=== PATIENT | male | born 1960 | race Asian ===

== ENCOUNTER 2016-07-02 19:55 | Emergency (ER) | payer OTHER ==
[~2016-07-02] VITALS: Ht 172.7 cm; Wt 89.0 kg
[~2016-07-02 19:55] MED LIST: PRED20TA PO
[2016-07-02 20:18] VITALS: Ht 172.7 cm; Wt 89.0 kg
[2016-07-02] MEDS ORDERED: ALBUTEROL/IPRATROPIUM (NEB) 3 ML AMP HHN STA (21:50)
[2016-07-02] MEDS ORDERED: predniSONE 20 MG TAB PO ONE (22:00)
--- NOTE | 2016-07-02 23:28 | ERD ---
ER Documentation Chief Complaint Date/Time DATE: 07/02/16 TIME: 23:24 Chief Complaint Asthma and SOB HPI Pleasant 55-year-old male patient comes in to emergency department today with reports of asthma exacerbation, patient reports symptoms started 2 days ago, he has a Ventolin inhaler which normally controls asthma symptoms, reports he has been using it 3 and 4 times a day with no relief of symptoms. Patient reports a tight chest, wheezing, headache, states he is coughing symptoms worse at night , patient reports cough is nonproductive, denies chest pain, dizziness, palpitations. ROS All systems reviewed and are negative except as per history of present illness. Medications Home Meds Active Scripts Prednisone* (Prednisone*) 20 Mg Tab, 60 MG PO DAILY for 15 Days, TAB 60 mg po daily for 4 days, then 40 mg dailt for 4 days. Prov:SANTINO DE LUNA DO 06/05/15 Allergies Allergies: Coded Allergies: aspirin (Verified Allergy, Unknown, 06/05/15) penicillin (Verified Allergy, Unknown, 06/05/15) PMhx/Soc Medical and Surgical Hx: pt denies Surgical Hx History of Surgery: No Anesthesia Reaction: No Hx Neurological Disorder: No Hx Respiratory Disorders: Yes (asthma ) Hx Cardiac Disorders: No Hx Psychiatric Problems: No Hx Miscellaneous Medical Probl: No Hx Alcohol Use: No Hx Substance Use: No Hx Tobacco Use: No Smoking Status: Never smoker Physical Exam Vitals Vital Signs Date Time Temp Pulse Resp B/P Pulse Ox O2 Delivery O2 Flow Rate FiO2 07/02/16 22:26 80 18 97 21 07/02/16 20:18 97.9 102 22 172/102 98 Physical Exam Const: [] Head: Atraumatic Eyes: Normal Conjunctiva ENT: Normal External Ears, Nose and Mouth. Neck: Full range of motion..~ No meningismus. Resp: Clear to auscultation bilaterally Cardio: Regular rate and rhythm, no murmurs Abd: Soft, non tender, non distended. Normal bowel sounds Skin: No petechiae or rashes Back: No midline or flank tenderness Ext: No cyanosis, or edema Neur: Awake and alert Psych: Normal Mood and Affect Results 24 hrs Current Medications Medications (Trade) Dose Ordered Sig/Cintia Route PRN Reason Start Time Stop Time Status Last Admin Dose Admin Albuterol/ Ipratropium (Duoneb) 3 ml ONCE STAT HHN 07/02/16 21:50 07/02/16 21:52 DC 07/02/16 22:24 Prednisone (Prednisone) 60 mg ONCE ONCE PO 07/02/16 22:00 07/02/16 22:01 DC 07/02/16 22:03 Procedures/[facility] Pleasant 55-year-old male patient presents to emergency department for asthma symptoms. Patient is in no acute distress, speaks clearly, no intercostal retractions, posturing, or coughing. Status asthmaticus is not likely. Chest auscultation is diminished with poor air movement, faint wheeze with expiration. No egophony, pneumonia is not suspected. Patient receives albuterol Atrovent hand-held nebulized treatment and 60 mg of prednisone, post examination patient's breath sounds now are audible, faint wheeze remains present, oxygen saturation is 98% on room air. I feel patient will respond to outpatient treatment with 40 mg of prednisone 4 days, and refill albuterol inhaler. Follow-up with primary care physician. I feel the patient is stable for discharge at this time. I have discussed results, examination findings, the treatment plan with the patient and family present prior to discharge. Indications for emergent reevaluation, side effects of medication were also discussed. All questions were answered. Patient verbalizes understanding and agrees with plan of care. Departure Condition: BENJAMIN Gardner Jul 02, 2016 23:28
[2016-07-02] MEDS ORDERED: PRED20TA PO (23:29)
[2016-07-02] MEDS ORDERED: ALBU18HF INHALATION (23:30)
[2016-07-02 23:40] VITALS: BP 156/103; PULSE 88; RESP 16; TEMP 98
== END 2016-07-02 23:49 | disposition home or self-care (01) ==
LOC: FTE 19:55
DX: J45.901 Unspecified asthma with (acute) exacerbation (principal); R06.02 Shortness of breath
CPT/HCPCS: 94664; J7512; Z7502; Z7610

== ENCOUNTER 2017-06-07 21:47 | Emergency (ER) | END 2017-06-08 00:43 | disposition home or self-care (01) ==

== ENCOUNTER 2018-06-22 15:47 | Inpatient (IN) | payer OTHER ==
[~2018-06-22] VITALS: Ht 175.3 cm; Wt 84.4 kg
[~2018-06-22 15:47] MED LIST changes: +ALBU18HF INHALATION; +ALBU8.5H8 INH; +BECL8.7A INH; +CETI10CA PO; +GUAI120S26 PO
--- NOTE | 2018-06-22 16:35 | ERD ---
ER Documentation Chief Complaint Chief Complaint Complains of SOB hx of Asthma HPI 57-year-old male with a history of asthma presented to the ED complaining of shortness of breath. While in the waiting room patient complained of nausea went to the restroom had an episode of nonbloody emesis and subsequent fall with possible syncope in which he had the left side of his head. Now complains of mild, generalized, crampy, non-radiating abdominal pain. Denies shortness of breath currently. No chest pain or palpitations. Also complains of mild, generalized pruritus and rash. No URI symptoms, fevers or chills. ROS All systems reviewed and are negative except as per history of present illness. Medications Home Meds Active Scripts Methylprednisolone* (Medrol* DOSE PACK) 4 Mg/Dose-Pack Tab.ds.pk, 4 MG PO . DIRECTED, #1 PACKET Prov:SHAVON RYAN NP 06/24/18 Metronidazole* (Flagyl*) 500 Mg Tablet, 500 MG PO Q8, #21 TAB Prov:SHAVON RYAN NP 06/24/18 Ciprofloxacin Hcl* (Ciprofloxacin Hcl*) 500 Mg Tablet, 500 MG PO BID for 7 Days, #14 TAB Prov:SHAVON RYAN NP 06/24/18 Beclomethasone Dip* (Qvar 40*) 7.3 Gm Inha, 2 PUFF INH BID, #1 INHALER Prov:ENEIDA MERCADO NP 06/08/17 Albuterol Sulfate* (Proair HFA*) 8.5 Gm Hfa.aer.ad, 2 PUFF INH Q4H PRN for WHEEZING AND SOB, #1 INHALER Prov:ENEIDA MERCADO NP 06/08/17 Discontinued Scripts Aapyxsmfgbw-X-Engunjzcfd Hb* (Guaifenesin* DM Syrup) 120 Ml Syrup, 10 ML PO Q4H PRN for COUGH, #120 ML Prov:ENEIDA MERCADO NP 06/08/17 Cetirizine Hcl* (Zyrtec*) 10 Mg Capsule, 10 MG PO DAILY, #30 TAB.CHEW Prov:ENEIDA MERCADO NP 06/08/17 Prednisone* (Prednisone*) 20 Mg Tab, 60 MG PO DAILY for 5 Days, TAB Prov:ENEIDA MERCADO NP 06/08/17 Albuterol Sulfate* (Ventolin HFA*) 18 Gm Hfa.aer.ad, 2 PUFF INHALATION Q4H, #1 INHALER Prov:KRISTIN,BENJAMIN 07/02/16 Prednisone* (Prednisone*) 20 Mg Tab, 40 MG PO DAILY for 4 Days, TAB Prov:KRISTIN,BENJAMIN 07/02/16 Prednisone* (Prednisone*) 20 Mg Tab, 60 MG PO DAILY for 15 Days, TAB 60 mg po daily for 4 days, then 40 mg dailt for 4 days. Prov:SANTINO DE LUNA DO 06/05/15 Allergies Allergies: Coded Allergies: aspirin (Verified Allergy, Unknown, 06/22/18) penicillin (Verified Allergy, Unknown, 06/22/18) PMhx/Soc Reviewed in chart. As per HPI. History of Surgery: No Anesthesia Reaction: No Hx Neurological Disorder: No Hx Respiratory Disorders: Yes (asthma ) Hx Cardiac Disorders: No Hx Psychiatric Problems: No Hx Miscellaneous Medical Probl: No Hx Alcohol Use: No Hx Substance Use: No Hx Tobacco Use: No FmHx No sudden cardiac or cancer Physical Exam Vitals Vital Signs Date Temp Pulse Resp B/P (MAP) Pulse Ox O2 O2 Flow FiO2 Time Delivery Rate 06/22/18 97.8 109 17 143/83 98 Room Air 20:00 (103) 06/22/18 97.5 101 17 137/70 100 High Flow 8.0 18:11 (92) 06/22/18 120 28 102/68 100 Room Air 17:30 (79) 06/22/18 112 19 96 21 17:24 06/22/18 97.4 100 20 86/50 (62) 99 15:50 Physical Exam Const: Alert, moderate distress. Head: Abrasion left forehead above the eyebrow. Eyes: Pupils equal react to light, extraocular movements are intact. No nystagmus. No periorbital ecchymosis or subconjunctival hemorrhage. No infraorbital step-off. No cheek hyperesthesias or paresthesias. Superficial vertical abrasion lateral to the left eye lateral canthus. ENT: Normal External Ears, Nose and Mouth. Pharynx is clear without erythema or exudate. No lip, tongue or uvular swelling. Negative conley sign. No hemotympanum. Neck: Full range of motion. No lymphadenopathy or masses. No stridor. No meningismus. Resp: Breath sounds are diminished bilaterally with mild expiratory wheezing and prolonged expiratory phase. No rhonchi or rales. Cardio: Regular rate and rhythm, no murmurs Abd: Soft, mild, generalized tenderness but no rebound or guarding. Non distended. No masses or abnormal pulsations. Normal bowel sounds Skin: Urticarial rash on abdomen. Back: No midline or flank tenderness Ext: No cyanosis, or edema Neur: Awake and alert but has no recollection of syncope. Cranial nerves II through XII are grossly intact. Sensory equal bilaterally. Psych: Normal Mood and Affect Result Diagram: 06/24/1871406/24/18714 Results 24 hrs Laboratory Tests Test 06/22/18 16:34 06/22/18 17:00 06/22/18 17:01 06/22/18 17:49 Bedside Glucose 111 mg/dL White Blood Count 18.3 10^3/ul Red Blood Count 5.97 10^6/ul Hemoglobin 17.1 g/dl Hematocrit 50.4 % Mean Corpuscular 84.4 fl Volume Mean Corpuscular 28.6 pg Hemoglobin Mean Corpuscular 33.9 g/dl Hemoglobin Concent Red Cell 12.6 % Distribution Width Platelet Count 322 10^3/UL Mean Platelet 10.1 fl Volume Immature 0.800 % Granulocytes % Neutrophils % 83.6 % Lymphocytes % 9.5 % Monocytes % 5.1 % Eosinophils % 0.6 % Basophils % 0.4 % Nucleated Red Blood 0.0 /100WBC Cells % Immature 0.140 10^3/ul Granulocytes # Neutrophils # 15.3 10^3/ul Lymphocytes # 1.8 10^3/ul Monocytes # 0.9 10^3/ul Eosinophils # 0.1 10^3/ul Basophils # 0.1 10^3/ul Nucleated Red Blood 0.0 10^3/ul Cells # Sodium Level 138 mmol/L Potassium Level 3.6 mmol/L Chloride Level 97 mmol/L Carbon Dioxide 28 mmol/L Level Anion Gap 13 Blood Urea Nitrogen 19 mg/dl Creatinine 1.38 mg/dl Est Glomerular 53 mL/min Filtrat Rate mL/min Glucose Level 133 mg/dl Calcium Level 9.7 mg/dl Total Bilirubin 0.8 mg/dl Direct Bilirubin 0.00 mg/dl Indirect Bilirubin 0.8 mg/dl Aspartate Amino 30 IU/L Transf (AST/SGOT) Alanine 18 IU/L Aminotransferase (A LT/SGPT) Alkaline 96 IU/L Phosphatase Troponin I < 0.012 ng/ml Total Protein 7.4 g/dl Albumin 4.3 g/dl Globulin 3.10 g/dl Albumin/Globulin 1.38 Ratio Ethyl Alcohol Level < 10.0 mg/dl Lipase 107 U/L POC Venous Lactate 5.4 mmol/L Test 06/22/18 18:09 Urine Color ARACELI Urine Clarity CLOUDY Urine pH 5.0 Urine Specific 1.020 Organ Urine Ketones NEGATIVE mg/dL Urine Nitrite NEGATIVE mg/dL Urine Bilirubin NEGATIVE mg/dL Urine Urobilinogen 1+ mg/dL Urine Leukocyte 1+ Jarrell/ul Esterase Urine Microscopic 80 /HPF RBC Urine Microscopic 18 /HPF WBC Urine Bacteria FEW /HPF Urine Hyaline Casts FEW /HPF Urine Mucus MANY /HPF Urine Hemoglobin 2+ mg/dL Urine Glucose NEGATIVE mg/dL Urine Total Protein 2+ mg/dl Urine Opiates Negative Screen Urine Barbiturates Negative Urine Amphetamines POSITIVE Screen Urine Negative Benzodiazepines Screen Urine Cocaine Negative Screen Urine Cannabinoids Negative Current Medications Medications Dose Sig/Cintia Start Time Status Last (Trade) Ordered Route PRN Stop Time Admin Dose Reason Admin Sodium 1,000 ml @ Q1H STAT 06/22/18 DC 06/22/18 Chloride 1,000 mls/hr IV 16:51 06/22/18 17:03 17:50 125 mg ONCE ONCE 06/22/18 DC 06/22/18 Methylprednis IV 17:00 06/22/18 17:04 olone Sodium 17:01 Succinate (Solu-Medrol) 50 mg ONCE ONCE 06/22/18 DC 06/22/18 Diphenhydrami IV 17:00 06/22/18 17:39 ne HCl 17:01 (Benadryl) Ranitidine 52 ml @ ONCE IVPB 06/22/18 DC 06/23/18 HCl 50 104 mls/hr 17:00 06/24/18 16:42 mg/Sodium 15:12 Chloride Albuterol 10 mg ONCE STAT 06/22/18 DC 06/22/18 (Proventil INH 16:57 06/22/18 17:24 0.5% (Neb)) 16:58 Sodium 1,560 ml BOLUS OVER 2 06/22/18 DC 06/22/18 Chloride HOURS STAT 17:33 06/22/18 17:46 (NS) IV* 17:40 100 ml @ ONCE STAT 06/22/18 DC 06/22/18 Metronidazole 100 mls/hr IVPB 17:52 06/22/18 18:07 18:51 150 ml @ ONCE STAT 06/22/18 DC 06/22/18 Levofloxacin/ 100 mls/hr IVPB 17:52 06/22/18 19:09 Dextrose 19:21 Procedures/MDM DOCUMENTS REVIEWED: ED nurse, prior records EKG: Time: 16:57. Sinus rhythm. Ventricular rate 91, normal ND and QRS intervals. No acute ST segment elevation or depression. No axis deviation or ectopy. My Interpretation: Normal EKG IMAGING: PROCEDURE: XR Chest. CLINICAL INDICATION: Syncope/SOB TECHNIQUE: Single view chest x-ray. COMPARISON: CHEST 06/07/2017 FINDINGS: The cardiomediastinal silhouette is normal in size and contour. No focal consolidation or pleural effusion. Subtle left apical somewhat horizontally oriented line, though with suggestion of peripheral lung markings. Mild degenerative changes of the osseous structures appear IMPRESSION: 1. Findings as above, which may reflect a subtle left apical pneumothorax. Recommend repeat chest radiograph obtained in expiration or CT for further evaluation. Findings were discussed with Jaime Saldaña on 06/22/2018 at 5:50 PM. RPTAT: BBDD Physician Berenice Date Time Electronically viewed and signed by Physician Berenice on 06/22/2018 17:50 RP/ PROCEDURE: CT Brain without contrast. CLINICAL INDICATION: Head injury, syncope. TECHNIQUE: A CT of the brain without contrast was performed utilizing axial sections from the skull base through the vertex. One or more the following does reduction techniques were utilized: Automated exposure control, adjustment of the mA/ or kV according to patient's size, or use of iterative reconstruction technique. Total exam CTDIvol is 39.64 MGy and DLP is 634.23 mGy-cm. DICOM images are available. COMPARISON: None available. FINDINGS: The ventricles and sulci are mildly prominent indicative of volume loss. There is no intracranial hemorrhage, mass effect or midline shift. No abnormal intra- axial or extra-axial fluid collections are seen. The treviño/white matter differentiation is preserved. There are mild foci of hypoattenuation in the white matter, which are nonspecific in etiology but likely reflect chronic small vessel ischemic changes. There are mild intracranial vascular calcifications consistent with atherosclerosis. The visualized paranasal sinuses are essentially clear. IMPRESSION: 1. No acute intracranial hemorrhage, transcortical infarction or mass effect. 2. Mild intracranial atherosclerosis and chronic small vessel ischemic changes. 3. Mild generalized cerebral volume loss. RPTAT: HFN .Gama Echeverria MD, MD Date Time Electronically viewed and signed by .Gama Echeverria MD, MD on 06/22/2018 17:19 .N/ PROCEDURE: CT Abdomen and Pelvis without contrast. CLINICAL INDICATION: Abdominal pain, syncope TECHNIQUE: CT scan of the abdomen and pelvis without IV contrast was performed on a multi-detector high-resolution CT scanner. Oral contrast was not administered. Coronal and sagittal reformatted images were obtained from the axial source images. DICOM images are available. CTDI equals 11.76 mGy, and DLP equals 638.17 mGy-cm. One or more of the following dose reduction techniques were used: - Automated exposure control. - Adjustment of the mA and/or kV according to patient size. - Use of iterative reconstruction technique. COMPARISON: None. FINDINGS: In the absence of intravenous contrast, the study constitutes a limited assessment of the solid organs, bowel and vessels. Lower thorax: Normal. Liver: Normal. Bile Ducts: No biliary dilatation. Gallbladder: Mild layering sludge. Pancreas: Mild fatty involution of the pancreas. Spleen: Normal. Adrenal Glands: Normal. Kidneys/Ureters: Normal. Bladder: Diffuse bladder wall thickening is slightly more than expected for its partially collapsed state. Reproductive organs: Mildly enlarged prostate gland. Gastrointestinal Tract: Scattered colonic diverticula with apparent minimal fat stranding about the distal descending colon. No evidence of appendicitis. Peritoneum/Retroperitoneum: No free fluid or free air. Lymph nodes: Normal. Vessels: Scattered atherosclerotic calcifications of the abdominal aorta and iliacs Musculoskeletal: Mild multilevel degenerative changes of the visualized spine. IMPRESSION: 1. Scattered colonic diverticula with apparent minimal fat stranding about the distal descending colon, may reflect early/mild changes of diverticulitis in the appropriate clinical setting. No pericolonic abscess or free air. 2.Diffuse bladder wall thickening, slightly more than expected for its partially collapsed state. Correlate for potential cystitis. 3. Mildly enlarged prostate gland, consider correlation with PSA. 4. Additional findings as above. RPTAT: BBDD Noe Leonard Physician Date Time Electronically viewed and signed by Physician Berenice on 06/22/2018 17:36 RP/ PROCEDURE: XR Chest. CLINICAL INDICATION: Asthma exacerbation TECHNIQUE: Single frontal view of the chest was obtained COMPARISON: None FINDINGS: The heart is normal in size. There is a 1.4 cm pulmonary nodule in the left upper lobe. No focal consolidations, pleural effusions, pneumothorax is seen. Degenerative changes of the spine and shoulder joints are present. IMPRESSION: 1. A 1.4 cm pulmonary nodule in the left upper lobe. A CT of the chest may be obtained for further characterization. RPTAT:AAJJ Physician Isela Date Time Electronically viewed and signed by Physician Isela on 06/07/2017 23:46 QL/ MEDICAL DECISION MAKIN-year-old male with a history of asthma presented to the ED complaining of shortness of breath. CBC to evaluate for leukocytosis and anemia reveals significant leukocytosis but no left shift. Chemistry reveals elevated creatinine with normal BUN but no electrolyte abnormalities or hyperkalemia. LFTs are unremarkable for hyperkalemia or transaminitis. No evidence of pancreatitis his lipase is not elevated. EKG reveals no evidence of ischemia or dysrhythmia. Troponin is negative. Markedly elevated lactate of 5.4 mmol/L consistent with septic shock although may be elevated due to respirat ory insufficiency. Chest x-ray revealed possible small, apical pneumothorax and repeat expiratory x-ray is negative for pneumothorax but does show a small pulmonary nodule. No infiltrate or pneumonia. CT of the abdomen and pelvis significant for diverticulosis and possible diverticulitis but no abdominal aortic aneurysm, bowel obstruction or perforation. CT of the brain is negative for subdural/epidural hematoma, mass or ischemia in this patient who sustained a closed head injury after syncope. Syncopal episode of uncertain etiology but likely vasovagal after vomiting. No focal deficit, signs of CVA or TIA. No cardiac dysrhythmia. Pulmonary embolism is unlikely. Diffuse urticarial rash secondary to allergic reaction of uncertain etiology treated aggressively and resolved with intravenous corticosteroids, IV fluids and H2 blockers. Admit to telemetry for further evaluation and management. Sepsis documentation: Patient's infectious symptoms have not stabilized and the patient is at risk of rapid decompensation. The patient will be admitted for careful hydration, antibiotic therapy, and infectious source control. Severe Sepsis criteria: Infectious source: Intra-abdominal End organ damage indicated by: Lactate > 2.0 mmol/L Hypotension (SBP < 90 or >40 mmHG drop or MAP < 65) Sepsis Management: Time of recognition of severe sepsis: 17:52 Within 1 hours of recognition: Blood cultures x 2 before broad-spectrum antibiotics: Yes 30 ml/kg NS bolus Completed Initial lactate 5.4 Repeat lactate 1.9 Septic Shock Assessment: Any lactic acid > 4.0 yes Persistent hypotension (SBP < 90 or 40 mmHg drop, MAP < 65) despite 30 mL/kg IV fluid bolus: No Persistent Hypotension: No Comfort care No Hypotension caused by: pt. baseline, med-induced, erroneous value, condition o ther than infection No Refusal by patient/decision maker for: blood draw, IVF, Antibiotics, Pressors No Central line not indicated Accepting Care Team Current data and ongoing care discussed. Time: 18:45 PATIENT CARE TRANSITIONED: Time:18:45, Dr. Lucas Trevizo Critical Care Time: 35 minutes Treatments/Evaluations: Close monitoring and treatment of unstable vital signs, cardiorespiratory, and neurologic status, while maintaining tight balance of fluid, respiratory, and cardiac interventions. This includes the administration of emergency fluid management while maintaining close respiratory support as well as the provision of immediate and broad-spectrum antibiotic therapy, while performing a simultaneous assessment for possible sources in order to direct targeted therapy. This time includes discussing the case with the patient and the patient's family. This time also includes the consideration for invasive and chemical support to prevent cardiopulmonary collapse. This time does not include all procedures stated elsewhere in this record. This time also includes reviewing old records, labs and radiological studies. This time includes examining and re-examining the patient. Additionally, this time also includes arranging care with admitting and consulting physicians. Counseled patient regarding diagnosis, diagnostic results and plan for admission. Departure Diagnosis: Primary Impression: Shortness of breath Additional Impressions: Septic shock SIRS (systemic inflammatory response syndrome) Diverticulitis Syncope Syncope type: unspecified Qualified Codes: R55 - Syncope and collapse Asthma exacerbation Asthma severity: moderate Asthma persistence: unspecified Qualified Cod es: J45.901 - Unspecified asthma with (acute) exacerbation Allergic reaction Encounter type: initial encounter Qualified Codes: T78.40XA - Allergy, unspecified, initial encounter Closed head injury Encounter type: initial encounter Qualified Codes: S09.90XA - Unspecified injury of head, initial encounter Facial abrasion Encounter type: initial encounter Qualified Codes: S00.81XA - Abrasion of other part of head, initial encounter Condition: Serious JAIME CAMPBELL MD Jun 22, 2018 16:35
[2018-06-22] MEDS ORDERED: SOD CHLORIDE 0.9% 1,000 ML IV STA (16:51)
[2018-06-22] MEDS ORDERED: ALBUTEROL 0.5% (NEB) 2.5 MG/0.5 ML AMP INH STA (16:57)
[2018-06-22] MEDS ORDERED: METHYLPREDNISOLONE 125 MG INJ IV ONE (17:00)
[2018-06-22] MEDS ORDERED: DIPHENHYDRAMINE 50 MG INJ IV ONE (17:00)
[2018-06-22] MEDS ORDERED: SODIUM CHLORIDE 0.9% 1L BAG IV* STA (17:33)
[2018-06-22] MEDS: RANITIDINE 50 MG in SOD CHLORIDE 0.9% 50 ML IVPB SCH (17:40)
[2018-06-22] MEDS ORDERED: LEVOFLOXACIN 750MG/D5W (PMX) 150 ML IVPB STA (17:52)
[2018-06-22] MEDS ORDERED: metroNIDAZOLE 500 MG/NS (PMX) 100 ML IVPB STA (17:52)
[2018-06-22] MEDS ORDERED: ACETAMINOPHEN 325 MG TAB PO PRN (20:30)
[2018-06-22] MEDS ORDERED: ONDANSETRON 4 MG INJ IV PRN (20:30)
[2018-06-22] MEDS ORDERED: NACL 0.9% 3 ML SYG IV SCH (20:30)
[2018-06-22] MEDS ORDERED: BISACODYL (EC) 5 MG TAB PO PRN (20:30)
[2018-06-22] MEDS ORDERED: LORAZEPAM 2 MG INJ IV PRN (20:30)
[2018-06-22] MEDS ORDERED: IPRATROPIUM (NEB) 0.5 MG/2.5 ML AMP HHN PRN (20:30)
[2018-06-22] MEDS ORDERED: LEVALBUTEROL (NEB) 1.25 MG/0.5 ML AMP HHN PRN (20:30)
[2018-06-22] MEDS ORDERED: DOCUSATE SODIUM 100 MG CAP PO PRN (20:30)
[2018-06-22 22:00] VITALS: PULSE 102
--- NOTE | 2018-06-22 22:09 | HP ---
Date/Time of Note Date/Time of Note DATE: 06/22/18 TIME: 22:08 Assessment/Plan VTE Prophylaxis SCD applied (from Nsg): Yes Pharmacological prophylaxis: NA/contraindicated Pharm contraindication: low risk/ambulating Lines/Catheters IV Catheter Type (from Nrsg): Saline Lock Assessment/Plan Hospital Course This is a 57-year-old male being admitted to the telemetry floor for: #1 septic shock: Secondary possibly to urinary tract infection and/or possible diverticulitis. Patient at the current time does not have any abdominal pain to palpation. Urinalysis is positive for urinary tract infection. Given his CT findings as well as urinalysis will treat right now ciprofloxacin and Flagyl. W ill trend lactate levels. Initial blood pressures were hypotensive however they have improved. Monitor closely for any signs of fever. Cultures pending. #2 syncopal episode: Etiology unknown possibly secondary to septic shock. Monitor blood pressure. Will check echocardiogram and carotid Dopplers. CT scan of the head was negative for any acute on normalities. Will check orthostatics. #3 asthma exacerbation: Etiology possibly due to amphetamine though patient denies its use. Nebulizers every 4 hours scheduled, IV steroids given in the ED, continue with 5-day prednisone burst. No infiltrates or consolidation seen on chest x-ray. #4 questionable diverticulitis: CAT scan shows possible early diverticulitis. At the current time will treat with Cipro and Flagyl. Current time patient is not complaining of any abdominal pain. Monitor. #5 Acute kidney injury: Creatinine 1.38 I do not have a baseline. Likely secondary to hemodynamics, septic shock. IV fluid hydration. Avoid NSAIDs or nephrotoxic agents. Renally dose antibiotics. Recheck renal function in the a.m. #6 urinary tract infection: Await culture results, on Cipro. #7 abnormal urine drug screen: Positive for amphetamines. Patient denies use. #8 rash: Secondary possibly to allergic reaction. Resolved at the current time. Continue to monitor #9 DVT and GI prophylaxis: SCDs, no GI prophylaxis indicated Further treatment strategy will be implemented as per the clinical course Result Diagram: 06/22/18 1700 06/22/18 1700 Results 24hrs Laboratory Tests Test 06/22/18 16:34 06/22/18 17:00 06/22/18 17:01 06/22/18 17:49 Bedside Glucose 111 White Blood Count 18.3 H Red Blood Count 5.97 Hemoglobin 17.1 Hematocrit 50.4 Mean Corpuscular Volume 84.4 Mean Corpuscular 28.6 L Hemoglobin Mean Corpuscular 33.9 Hemoglobin Concent Red Cell Distribution 12.6 Width Platelet Count 322 Mean Platelet Volume 10.1 Immature Granulocytes % 0.800 H Neutrophils % 83.6 H Lymphocytes % 9.5 L Monocytes % 5.1 Eosinophils % 0.6 Basophils % 0.4 Nucleated Red Blood 0.0 Cells % Immature Granulocytes # 0.140 H Neutrophils # 15.3 H Lymphocytes # 1.8 Monocytes # 0.9 Eosinophils # 0.1 Basophils # 0.1 Nucleated Red Blood 0.0 Cells # Sodium Level 138 Potassium Level 3.6 Chloride Level 97 Carbon Dioxide Level 28 Anion Gap 13 Blood Urea Nitrogen 19 Creatinine 1.38 H Est Glomerular Filtrat 53 L Rate mL/min Glucose Level 133 Calcium Level 9.7 Total Bilirubin 0.8 Direct Bilirubin 0.00 Indirect Bilirubin 0.8 Aspartate Amino 30 Transf (AST/SGOT) Alanine 18 Aminotransferase (ALT/SG PT) Alkaline Phosphatase 96 Troponin I < 0.012 Total Protein 7.4 Albumin 4.3 Globulin 3.10 Albumin/Globulin Ratio 1.38 Ethyl Alcohol Level < 10.0 H Lipase 107 POC Venous Lactate 5.4 *H Test 06/22/18 18:09 Urine Color ARACELI Urine Clarity CLOUDY A Urine pH 5.0 Urine Specific [place] 1.020 Urine Ketones NEGATIVE Urine Nitrite NEGATIVE Urine Bilirubin NEGATIVE Urine Urobilinogen 1+ H Urine Leukocyte Esterase 1+ H Urine Microscopic RBC 80 H Urine Microscopic WBC 18 H Urine Bacteria FEW A Urine Hyaline Casts FEW A Urine Mucus MANY A Urine Hemoglobin 2+ H Urine Glucose NEGATIVE Urine Total Protein 2+ H Urine Opiates Screen Negative Urine Barbiturates Negative Urine Amphetamines POSITIVE Screen Urine Benzodiazepines Negative Screen Urine Cocaine Screen Negative Urine Cannabinoids Negative HPI/ROS Admit Date/Time Admit Date/Time Jun 22, 2018 at 20:06 Hx of Present Illness Chief complaint: Shortness of breath This is a 57-year-old male with a history of asthma presented to the ED complaining of shortness of breath. While in the waiting room patient complained of nausea went to the restroom had an episode of nonbloody emesis and subsequent fall with possible syncope in which he had the left side of his head. Now complains of mild, generalized, crampy, not rating abdominal pain. Denies any chest pain or palpitations. Denies shortness of breath currently. No chest pain or palpitations. Patient did also complain of generalized itchiness and he was noted to have rash type lesion on his skin throughout. Patient did receive steroids as well as Benadryl in the emergency department. He did have a CT scan of the head performed which was negative for any acute abnormality. Urine drug screen was positive for amphetamines however when he was questioned about this he states that he does not do any methamphetamines and that he "usually has a positive drug screen for amphetamines from his inhaler". Does report urinary urgency. On x-ray there also was concern for possible pneumothorax however a repeat expiratory phase x-ray was ordered which did not show any pneumothorax. Allergies: Aspirin, penicillin Medications: See JEWEL BARCENAS Const: As per HPI Eyes : No pain discharge or redness or change in visual acuity ENT: No pain, sore throat, congestion, congestion, dysphagia or discharge Respiratory: As per HPI Cardiovascular: No chest pain, palpitation, PND, or edema GI : As per HPI Genitourinary: No dysuria, hematuria, flank pain , discharge or CVA tenderness Musculoskeletal: No joint pain, back pain, neck pain, restricted range of motion in neck or joints Skin: No rash, bruising or hives Neuro: As per HPI Endocrine: No polyuria, polydipsia, temperature intolerance Psych: No hallucination, depression, anxiety or suicidal ideation PMH/Family/Social Past Medical History Asthma Medications Current Medications Ranitidine HCl 50 mg/Sodium Chloride 52 ml @ 104 mls/hr ONCE IVPB Last administered on 06/22/18at 17:40; Admin Dose 104 MLS/HR; Start 06/22/18 at 17:00 IV Flush (NS 3 ml) 3 ml PER PROTOCOL IV ; Start 06/22/18 at 20:30 Lorazepam (Ativan) 1 mg Q6H PRN IV AGITATION/ANXIETY; Start 06/22/18 at 20:30 Ondansetron HCl (Zofran Inj) 4 mg Q6H PRN IV NAUSEA/VOMITING; Start 06/22/18 at 20:30 Acetaminophen (Tylenol Tab) 650 mg Q6H PRN PO .PAIN 1-3 OR TEMP; Start 06/22/18 at 20:30 Docusate Sodium (Colace) 100 mg Q12H PRN PO .CONSTIPATION; Start 06/22/18 at 20:30 Bisacodyl (Dulcolax) 5 mg DAILY PRN PO .CONSTIPATION; Start 06/22/18 at 20:30 Metronidazole 100 ml @ 100 mls/hr Q6 IVPB ; Start 06/23/18 at 00:00 Ciprofloxacin/ Dextrose 100 ml @ 100 mls/hr Q12H IVPB ; Start 06/23/18 at 08:00 Ipratropium [place] (Atrovent 0.02% (Neb)) 0.5 mg Q4H RESP THERAPY HHN ; Start 06/22/18 at 20:30 Levalbuterol (Xopenex Neb) 1.25 mg Q4H RESP THERAPY HHN ; Start 06/22/18 at 20: 30 Coded Allergies: aspirin (Verified Allergy, Unknown, 06/22/18) penicillin (Verified Allergy, Unknown, 06/22/18) Past Surgical History Past Surgical Hx: no surgical history Family History Significant Family History: no pertinent family hx Social History Of note patient was positive for amphetamine on urine drug screen Alcohol Use: none Smoking Status: Former smoker Drug Use: none Exam/Review of Systems Vital Signs Vitals Vital Signs Date Temp Pulse Resp B/P (MAP) Pulse Ox O2 O2 Flow FiO2 Time Delivery Rate 06/22/18 97.8 103 17 135/88 98 Room Air 21:28 (104) 06/22/18 8.0 18:11 06/22/18 21 17:24 Exam Exam General: Patient currently lying in bed in no acute distress HEENT: Atraumatic, normocephalic. The pupils are equal, round and reactive. Extraocular motor are intact Neck: Supple with full range of motion. No rigidity or meningismus Chest: Nontender Lungs: Mild expiratory wheezing, nonlabored breathing Heart: Normal S1-S2, Regular rhythm and rate. No murmur, S3, or S4 Abdomen: Soft , nontender, nondistended , bowel sounds are present. No guarding no rebound tenderness , No masses or organomegaly. No costovertebral temporal angle mass Extremities: Normal to inspection, no edema no cyanosis Neurologic: Normal mental status, speech normal, cranial nerves II through XII are intact, motor and sensory are intact, no focal weakness Skin: No wheals or rashes or urticaria noted Additional Comments PROCEDURE: Portable chest x-ray. CLINICAL INDICATION: 57 years of age, male. Shortness of breath. Concern for pneumothorax. TECHNIQUE: Portable AP view of the chest. COMPARISON: Chest x-ray from earlier the same day FINDINGS: Medical devices: None. Mediastinum: Cardiomediastinal contours are normal. Lungs: Lungs are clear. Pleura: Negative for pleural effusion or pneumothorax. Bones: No acute bony abnormality. Additional comment: None. IMPRESSION: Negative for evidence of an acute chest process. Negative for evidence of a left apical pneumothorax. RPTAT: HCTS Physician Chrissy Date Time Electronically viewed and signed by Gricel Raines Physician on 06/22/2018 18:27 CS/ CC: JAIME CAMPBELL MD [id number] PROCEDURE: CT Abdomen and Pelvis without contrast. CLINICAL INDICATION: Abdominal pain, syncope TECHNIQUE: CT scan of the abdomen and pelvis without IV contrast was performed on a multi-detector high-resolution CT scanner. Oral contrast was not administered. Coronal and sagittal reformatted images were obtained from the axial source images. DICOM images are available. CTDI equals 11.76 mGy, and DLP equals 638.17 mGy-cm. One or more of the following dose reduction techniques were used: - Automated exposure control. - Adjustment of the mA and/or kV according to patient size. - Use of iterative reconstruction technique. COMPARISON: None. FINDINGS: In the absence of intravenous contrast, the study constitutes a limited assessment of the solid organs, bowel and vessels. Lower thorax: Normal. Liver: Normal. Bile Ducts: No biliary dilatation. Gallbladder: Mild layering sludge. Pancreas: Mild fatty involution of the pancreas. Spleen: Normal. Adrenal Glands: Normal. Kidneys/Ureters: Normal. Bladder: Diffuse bladder wall thickening is slightly more than expected for its partially collapsed state. Reproductive organs: Mildly enlarged prostate gland. Gastrointestinal Tract: Scattered colonic diverticula with apparent minimal fat stranding about the distal descending colon. No evidence of appendicitis. Peritoneum/Retroperitoneum: No free fluid or free air. Lymph nodes: Normal. Vessels: Scattered atherosclerotic calcifications of the abdominal aorta and iliacs Musculoskeletal: Mild multilevel degenerative changes of the visualized spine. IMPRESSION: 1. Scattered colonic diverticula with apparent minimal fat stranding about the distal descending colon, may reflect early/mild changes of diverticulitis in the appropriate clinical setting. No pericolonic abscess or free air. 2.Diffuse bladder wall thickening, slightly more than expected for its partially collapsed state. Correlate for potential cystitis. 3. Mildly enlarged prostate gland, consider correlation with PSA. 4. Additional findings as above. RPTAT: BBDD Noe Leonard, Physician Date Time Electronically viewed and signed by Noe Leonard Physician on 06/22/2018 17:36 RP/ CC: JAIME CAMPBELL MD [id number] PROCEDURE: CT Brain without contrast. CLINICAL INDICATION: Head injury, syncope. TECHNIQUE: A CT of the brain without contrast was performed utilizing axial sections from the skull base through the vertex. One or more the following does reduction techniques were utilized: Automated exposure control, adjustment of the mA/ or kV according to patient's size, or use of iterative reconstruction technique. Total exam CTDIvol is 39.64 MGy and DLP is 634.23 mGy-cm. DICOM images are available. COMPARISON: None available. FINDINGS: The ventricles and sulci are mildly prominent indicative of volume loss. There is no intracranial hemorrhage, mass effect or midline shift. No abnormal intra- axial or extra-axial fluid collections are seen. The treviño/white matter differentiation is preserved. There are mild foci of hypoattenuation in the white matter, which are nonspecific in etiology but likely reflect chronic small vessel ischemic changes. There are mild intracranial vascular calcifications consistent with atherosclerosis. The visualized paranasal sinuses are essentially clear. IMPRESSION: 1. No acute intracranial hemorrhage, transcortical infarction or mass effect. 2. Mild intracranial atherosclerosis and chronic small vessel ischemic changes. 3. Mild generalized cerebral volume loss. RPTAT: HFN .Gama Echeverria MD, MD Date Time Electronically viewed and signed by .Gama Echeverria MD, MD on 06/22/2018 17:19 .N/ CC: JAIME CAMPBELL MD [id number]: XR Chest. CLINICAL INDICATION: Syncope/SOB TECHNIQUE: Single view chest x-ray. COMPARISON: DR CHEST 06/07/2017 FINDINGS: The cardiomediastinal silhouette is normal in size and contour. No focal consolidation or pleural effusion. Subtle left apical somewhat horizontally oriented line, though with suggestion of peripheral lung markings. Mild degenerative changes of the osseous structures appear IMPRESSION: 1. Findings as above, which may reflect a subtle left apical pneumothorax. Recommend repeat chest radiograph obtained in expiration or CT for further evaluation. Findings were discussed with Jaime Saldaña on 06/22/2018 at 5:50 PM. RPTAT: BBDD Physician Berenice Date Time Electronically viewed and signed by Physician Berenice on 06/22/2018 17:50 RP/ CC: JAIME CAMPBELL MD [id number] ZAIRA GRAY Jun 22, 2018 22:09
[2018-06-22 22:42] VITALS: Ht 175.3 cm; Wt 84.4 kg
[2018-06-22 22:49] VITALS: BP 110/63; PULSE 99; RESP 18
[2018-06-22 23:06] VITALS: BP 101/56; PULSE 101; RESP 16
[2018-06-22] MEDS: IPRATROPIUM (NEB) 0.5 MG/2.5 ML AMP HHN SCH ×2 (23:35→23:37)
[2018-06-22] MEDS: LEVALBUTEROL (NEB) 1.25 MG/0.5 ML AMP HHN SCH ×2 (23:37→23:38)
[2018-06-23] VITALS (10 sets, daily range): BP systolic 96–107; BP diastolic 54–59; PULSE 91–116; RESP 16–20
[2018-06-23] MEDS: LEVALBUTEROL (NEB) 1.25 MG/0.5 ML AMP HHN SCH ×6 (00:07→20:47)
[2018-06-23] MEDS: IPRATROPIUM (NEB) 0.5 MG/2.5 ML AMP HHN SCH ×6 (00:08→20:47)
[2018-06-23] MEDS: metroNIDAZOLE 500 MG/NS (PMX) 100 ML IVPB SCH ×4 (00:26→17:26)
[2018-06-23] MEDS: predniSONE 20 MG TAB PO SCH (08:26)
[2018-06-23] MEDS: CIPROFLOXACIN 200 MG/D5W IVPB 100 ML IVPB SCH ×2 (10:25→20:17)
--- NOTE | 2018-06-23 13:49 | RADRPT ---
Echocardiogram Report Patient Name: CYNDI HIGGINSPatient ID: [id number] : 1960 (58y )Study Date: 06/23/2018 10:23:44 AM Gender: MAccession #: [id number] Tech: LE Location: Ref.Physician: ZAIRA GRAY Height(Cm): BSA: Weight(Kg): Quality: GoodAccount #: Procedures: Echocardiographic Report: Transthoracic echocardiogram with complete 2D, M-Mode, and doppler examination. Indications: Syncope. Measurements: 2D/M Mode Doppler Measurement Value Normal Range Measurement Value Normal Range LVIDd 2D 5.3 [ 4.2 - 5.8 ] cm BARAK Vmax 2.0 [ 2.0 - 4.0 ] cm2 LVIDs 2D 3.6 [ 2.5 - 4.0 ] cm AV Mean Jesus 1.2 [ 70.0 - 90.0 ] cm/sec LVPWd 2D 1.0 [ 0.6 - 1.0 ] cm AV Mean PG 6.0 [ 2.0 - 4.0 ] mmHg IVSd 2D 1.0 [ 0.6 - 1.0 ] cm AV Peak Jesus 1.5 [ 100.0 - 170.0 ] cm/sec IVS/LVPW 2D 1.0 ratio AV Peak PG 9.0 [ 2.0 - 9.0 ] mmHg LVOT Diam 2.0 [ 2.3 - 2.9 ] cm AV VTI 28.8 cm LVOT Area 3.1 cm2 LVOT Peak Jesus 1.0 [ 70.0 - 110.0 ] cm/sec LVOT Peak PG 4.0 [ 2.0 - 6.0 ] mmHg MV E Peak Jesus 0.8 [ 60.0 - 130.0 ] cm/sec MV A Peak Jesus 1.0 [ 100.0 - 120.0 ] cm/sec MV E/A 0.8 [ 0.8 - 1.5 ] ratio MV Decel Time 165 [ 104 - 258 ] msec Lat E` Jesus 0.1 [ 10.0 - 15.0 ] cm/sec Med E` Jesus 0.1 cm/sec MV E/A 0.8 [ 0.8 - 1.5 ] ratio TR Peak Jesus 2.8 [ 100.0 - 280.0 ] cm/sec TR Peak PG 32.0 mmHg PV Peak Jesus 0.8 [ 40.0 - 80.0 ] cm/sec PV Peak PG 3.0 mmHg RA Pressure 3.0 mmHg Findings: Left Ventricle: Normal left ventricular systolic function. Normal left ventricular cavity size. Normal left ventricular wall thickness. Ejection fraction is visually estimated at 60 %. Tissue Doppler/Mitral Doppler indices are consistent with impaired relaxation (Stage I diastolic dysfunction). Right Ventricle: Normal right ventricular size. Normal right ventricular systolic function. Left Atrium: The left atrium is normal in size. Right Atrium: The right atrium is normal in size. Mitral Valve: Normal appearance of the mitral valve. Trace mitral regurgitation. Aortic Valve: Normal appearance of the aortic valve. No significant aortic stenosis or insufficiency. Tricuspid Valve: Normal appearance and function of the tricuspid valve with trace physiologic regurgitation. Right ventricular systolic pressure is consistent with mild pulmonary hypertension. Estimated peak PA systolic pressure 35 mmHg. Pulmonic Valve: Normal pulmonic valve appearance. Pericardium: Normal pericardium with no significant pericardial effusion. Aorta: Normal aortic root. IVC: Normal size and normal respiratory collapse consistent with normal right atrial pressure. Conclusions: Normal left ventricular systolic function. Normal left ventricular cavity size. Normal left ventricular wall thickness. Ejection fraction is visually estimated at 60 %. Tissue Doppler/Mitral Doppler indices are consistent with impaired relaxation (Stage I diastolic dysfunction). Normal right ventricular size. Normal right ventricular systolic function. The left atrium is normal in size. The right atrium is normal in size. No significant valvular stenosis or regurgitation seen. Normal pericardium with no significant pericardial effusion. Electronically Signed By: Evin Waller 2018-06-23 13:48:47 PST
--- NOTE | 2018-06-23 13:52 | PN ---
Date/Time of Note Date/Time of Note DATE: 06/23/18 TIME: 13:43 Assessment/Plan VTE Prophylaxis Risk score (from Ns)>0 risk: 2 SCD applied (from Ns): Yes Pharmacological prophylaxis: NA/contraindicated Pharm contraindication: low risk/ambulating Lines/Catheters IV Catheter Type (from [facility] Saline Lock Assessment/Plan Assessment/Plan 1. UTI, on cipro, follow up with culture 2. Mild colonic diverticulitis, on cipro and flagyl 3. Sepsis, improving 4. Lactic acidosis, improved 5. syncope, unremarkable carotid US, follow up with echo 6. Acute kidney injury from sepsis, resolved 7. Asthma, stable 8. abnormal urine drug screen: Positive for amphetamines. Patient denies use. 9. DVT prophylaxis: SCDs Result Diagram: 06/23/18 0748 06/23/18 0748 Results 24hrs Laboratory Tests Test 06/22/18 16:34 06/22/18 17:00 06/22/18 17:01 06/22/18 17:49 Bedside Glucose 111 White Blood Count 18.3 H Red Blood Count 5.97 Hemoglobin 17.1 Hematocrit 50.4 Mean Corpuscular Volume 84.4 Mean Corpuscular 28.6 L Hemoglobin Mean Corpuscular 33.9 Hemoglobin Concent Red Cell Distribution 12.6 Width Platelet Count 322 Mean Platelet Volume 10.1 Immature Granulocytes % 0.800 H Neutrophils % 83.6 H Lymphocytes % 9.5 L Monocytes % 5.1 Eosinophils % 0.6 Basophils % 0.4 Nucleated Red Blood 0.0 Cells % Immature Granulocytes # 0.140 H Neutrophils # 15.3 H Lymphocytes # 1.8 Monocytes # 0.9 Eosinophils # 0.1 Basophils # 0.1 Nucleated Red Blood 0.0 Cells # Sodium Level 138 Potassium Level 3.6 Chloride Level 97 Carbon Dioxide Level 28 Anion Gap 13 Blood Urea Nitrogen 19 Creatinine 1.38 H Est Glomerular Filtrat 53 L Rate mL/min Glucose Level 133 Calcium Level 9.7 Total Bilirubin 0.8 Direct Bilirubin 0.00 Indirect Bilirubin 0.8 Aspartate Amino 30 Transf (AST/SGOT) Alanine 18 Aminotransferase (ALT/SG PT) Alkaline Phosphatase 96 Troponin I < 0.012 Total Protein 7.4 Albumin 4.3 Globulin 3.10 Albumin/Globulin Ratio 1.38 Ethyl Alcohol Level < 10.0 H Lipase 107 POC Venous Lactate 5.4 *H Test 06/22/18 18:09 06/22/18 21:56 06/23/18 07:48 Urine Color ARACELI Urine Clarity CLOUDY A Urine pH 5.0 Urine Specific [place] 1.020 Urine Ketones NEGATIVE Urine Nitrite NEGATIVE Urine Bilirubin NEGATIVE Urine Urobilinogen 1+ H Urine Leukocyte Esterase 1+ H Urine Microscopic RBC 80 H Urine Microscopic WBC 18 H Urine Bacteria FEW A Urine Hyaline Casts FEW A Urine Mucus MANY A Urine Hemoglobin 2+ H Urine Glucose NEGATIVE Urine Total Protein 2+ H Urine Opiates Screen Negative Urine Barbiturates Negative Urine Amphetamines POSITIVE Screen Urine Benzodiazepines Negative Screen Urine Cocaine Screen Negative Urine Cannabinoids Negative Lactic Acid Level 1.9 White Blood Count 14.9 H Red Blood Count 4.85 Hemoglobin 13.8 L Hematocrit 40.9 L Mean Corpuscular Volume 84.3 Mean Corpuscular 28.5 L Hemoglobin Mean Corpuscular 33.7 Hemoglobin Concent Red Cell Distribution 13.1 Width Platelet Count 265 Mean Platelet Volume 10.1 Immature Granulocytes % 0.500 H Neutrophils % 90.9 H Lymphocytes % 5.4 L Monocytes % 3.0 Eosinophils % 0.0 Basophils % 0.2 Nucleated Red Blood 0.0 Cells % Immature Granulocytes # 0.080 H Neutrophils # 13.6 H Lymphocytes # 0.8 Monocytes # 0.5 Eosinophils # 0.0 Basophils # 0.0 Nucleated Red Blood 0.0 Cells # Sodium Level 137 Potassium Level 4.1 Chloride Level 105 Carbon Dioxide Level 24 Anion Gap 8 Blood Urea Nitrogen 17 Creatinine 0.89 Est Glomerular Filtrat > 60 Rate mL/min Glucose Level 129 Hemoglobin A1c 6.2 H Calcium Level 8.5 Magnesium Level 2.1 Total Bilirubin 0.4 Direct Bilirubin 0.00 Indirect Bilirubin 0.4 Aspartate Amino 23 Transf (AST/SGOT) Alanine 23 Aminotransferase (ALT/SG PT) Alkaline Phosphatase 77 Total Protein 6.0 #L Albumin 3.3 # Globulin 2.70 Albumin/Globulin Ratio 1.22 Triglycerides Level 43 Cholesterol Level 100 LDL Cholesterol, 51 Calculated HDL Cholesterol 40 Cholesterol/HDL Ratio 2.5 Thyroid Stimulating 0.467 Hormone (TSH) Subjective 24 Hr Interval Summary Free Text/Dictation no abdominal pain no shortness of breath no dysuria Exam/Review of Systems Exam Vitals Vital Signs Date Temp Pulse Resp B/P (MAP) Pulse Ox O2 O2 Flow FiO2 Time Delivery Rate 06/23/18 99 20 97 Nasal 2.0 28 12:48 Cannula 06/23/18 98.2 104/55 11:20 (71) Intake and Output 06/22/18 06/22/18 06/23/18 1414:59 22:59 06:59 IntakeIntake Total 1000 ml 100 ml BalanceBalance 1000 ml 100 ml Constitutional: alert, oriented, well developed Psych: no complaints, nl mood/affect Head: normocephalic, atraumatic Eyes: nl conjunctiva, EOMI, nl lids, PERRL ENMT: nl external ears & nose, nl lips & teeth, nl nasal mucosa & septum Neck: supple, non-tender Respiratory: clear to auscultation, normal air movement; No congested cough, No crackles/rales, No diminished breath sounds, No intercostal retraction, No labored breathing, No respirations, No tactile fremitus, No wheezing, No other Cardiovascular: regular rate and rhythm, nl pulses; No bruits, No diastolic murmur, No edema, No gallop, No irregular rhythm, No jugular venous distention (JVD), No murmurs/extra sounds, No rub, No systolic murmur, No S3, No S4, No other Gastrointestinal: soft, nl liver, spleen, non-tender; No ascites, No bowel sounds, No distended, No firm, No hepatomegaly, No mass, No rebound or guarding, No splenomegaly, No surgical scars, No tender, No other Musculoskeletal: nl extremities to inspection Extremities: normal pulses; No calf tenderness, No cyanosis, No clubbing, No edema, No pitting pedal edema, No palpable cord, No tenderness, No other Neurological: [employer] II-XII intact, nl mental status, nl speech, nl strength Results Results 24hrs Laboratory Tests Test 06/22/18 16:34 06/22/18 17:00 06/22/18 17:01 06/22/18 17:49 Bedside Glucose 111 White Blood Count 18.3 H Red Blood Count 5.97 Hemoglobin 17.1 Hematocrit 50.4 Mean Corpuscular Volume 84.4 Mean Corpuscular 28.6 L Hemoglobin Mean Corpuscular 33.9 Hemoglobin Concent Red Cell Distribution 12.6 Width Platelet Count 322 Mean Platelet Volume 10.1 Immature Granulocytes % 0.800 H Neutrophils % 83.6 H Lymphocytes % 9.5 L Monocytes % 5.1 Eosinophils % 0.6 Basophils % 0.4 Nucleated Red Blood 0.0 Cells % Immature Granulocytes # 0.140 H Neutrophils # 15.3 H Lymphocytes # 1.8 Monocytes # 0.9 Eosinophils # 0.1 Basophils # 0.1 Nucleated Red Blood 0.0 Cells # Sodium Level 138 Potassium Level 3.6 Chloride Level 97 Carbon Dioxide Level 28 Anion Gap 13 Blood Urea Nitrogen 19 Creatinine 1.38 H Est Glomerular Filtrat 53 L Rate mL/min Glucose Level 133 Calcium Level 9.7 Total Bilirubin 0.8 Direct Bilirubin 0.00 Indirect Bilirubin 0.8 Aspartate Amino 30 Transf (AST/SGOT) Alanine 18 Aminotransferase (ALT/SG PT) Alkaline Phosphatase 96 Troponin I < 0.012 Total Protein 7.4 Albumin 4.3 Globulin 3.10 Albumin/Globulin Ratio 1.38 Ethyl Alcohol Level < 10.0 H Lipase 107 POC Venous Lactate 5.4 *H Test 06/22/18 18:09 06/22/18 21:56 06/23/18 07:48 Urine Color ARACELI Urine Clarity CLOUDY A Urine pH 5.0 Urine Specific [place] 1.020 Urine Ketones NEGATIVE Urine Nitrite NEGATIVE Urine Bilirubin NEGATIVE Urine Urobilinogen 1+ H Urine Leukocyte Esterase 1+ H Urine Microscopic RBC 80 H Urine Microscopic WBC 18 H Urine Bacteria FEW A Urine Hyaline Casts FEW A Urine Mucus MANY A Urine Hemoglobin 2+ H Urine Glucose NEGATIVE Urine Total Protein 2+ H Urine Opiates Screen Negative Urine Barbiturates Negative Urine Amphetamines POSITIVE Screen Urine Benzodiazepines Negative Screen Urine Cocaine Screen Negative Urine Cannabinoids Negative Lactic Acid Level 1.9 White Blood Count 14.9 H Red Blood Count 4.85 Hemoglobin 13.8 L Hematocrit 40.9 L Mean Corpuscular Volume 84.3 Mean Corpuscular 28.5 L Hemoglobin Mean Corpuscular 33.7 Hemoglobin Concent Red Cell Distribution 13.1 Width Platelet Count 265 Mean Platelet Volume 10.1 Immature Granulocytes % 0.500 H Neutrophils % 90.9 H Lymphocytes % 5.4 L Monocytes % 3.0 Eosinophils % 0.0 Basophils % 0.2 Nucleated Red Blood 0.0 Cells % Immature Granulocytes # 0.080 H Neutrophils # 13.6 H Lymphocytes # 0.8 Monocytes # 0.5 Eosinophils # 0.0 Basophils # 0.0 Nucleated Red Blood 0.0 Cells # Sodium Level 137 Potassium Level 4.1 Chloride Level 105 Carbon Dioxide Level 24 Anion Gap 8 Blood Urea Nitrogen 17 Creatinine 0.89 Est Glomerular Filtrat > 60 Rate mL/min Glucose Level 129 Hemoglobin A1c 6.2 H Calcium Level 8.5 Magnesium Level 2.1 Total Bilirubin 0.4 Direct Bilirubin 0.00 Indirect Bilirubin 0.4 Aspartate Amino 23 Transf (AST/SGOT) Alanine 23 Aminotransferase (ALT/SG PT) Alkaline Phosphatase 77 Total Protein 6.0 #L Albumin 3.3 # Globulin 2.70 Albumin/Globulin Ratio 1.22 Triglycerides Level 43 Cholesterol Level 100 LDL Cholesterol, 51 Calculated HDL Cholesterol 40 Cholesterol/HDL Ratio 2.5 Thyroid Stimulating 0.467 Hormone (TSH) Medications Medication Current Medications Ranitidine HCl 50 mg/Sodium Chloride 52 ml @ 104 mls/hr ONCE IVPB Last administered on 06/22/18at 17:40; Admin Dose 104 MLS/HR; Start 06/22/18 at 17:00 IV Flush (NS 3 ml) 3 ml PER PROTOCOL IV ; Start 06/22/18 at 20:30 Lorazepam (Ativan) 1 mg Q6H PRN IV AGITATION/ANXIETY; Start 06/22/18 at 20:30 Ondansetron HCl (Zofran Inj) 4 mg Q6H PRN IV NAUSEA/VOMITING; Start 06/22/18 at 20:30 Acetaminophen (Tylenol Tab) 650 mg Q6H PRN PO .PAIN 1-3 OR TEMP; Start 06/22/18 at 20:30 Docusate Sodium (Colace) 100 mg Q12H PRN PO .CONSTIPATION; Start 06/22/18 at 20:30 Bisacodyl (Dulcolax) 5 mg DAILY PRN PO .CONSTIPATION; Start 06/22/18 at 20:30 Metronidazole 100 ml @ 100 mls/hr Q6 IVPB Last administered on 06/23/18 12:02; Admin Dose 100 MLS/HR; Start 06/23/18 at 00:00 Ciprofloxacin/ Dextrose 100 ml @ 100 mls/hr Q12H IVPB Last administered on 06/23/18 10:25; Admin Dose 100 MLS/HR; Start 06/23/18 at 08:00 Ipratropium [place] (Atrovent 0.02% (Neb)) 0.5 mg Q4H RESP THERAPY HHN Last administered on 06/23/18 12:45; Admin Dose 0.5 MG; Start 06/22/18 at 20:30 Levalbuterol (Xopenex Neb) 1.25 mg Q4H RESP THERAPY HHN Last administered on 06/23/18at 12:45; Admin Dose 1.25 MG; Start 06/22/18 at 20:30 Prednisone (Prednisone) 40 mg DAILY PO Last administered on 06/23/18at 08:26; Admin Dose 40 MG; Start 06/23/18 at 09:00; Stop 06/28/18 at 08:59 CHANTEL SHERMAN MD Jun 23, 2018 13:52
[2018-06-23] MEDS: RANITIDINE 50 MG in SOD CHLORIDE 0.9% 50 ML IVPB SCH (16:42)
[2018-06-24] VITALS: BP 113/61; PULSE 100; PULSE 99; RESP 19
[2018-06-24] MEDS: metroNIDAZOLE 500 MG/NS (PMX) 100 ML IVPB SCH ×3 (00:33→12:55)
[2018-06-24] MEDS: IPRATROPIUM (NEB) 0.5 MG/2.5 ML AMP HHN SCH ×4 (00:46→13:31)
[2018-06-24] MEDS: LEVALBUTEROL (NEB) 1.25 MG/0.5 ML AMP HHN SCH ×4 (00:46→13:31)
[2018-06-24 04:00] VITALS: BP 117/67; PULSE 90; PULSE 94; RESP 18
[2018-06-24 07:30] VITALS: BP 116/69; PULSE 87; RESP 19
[2018-06-24 08:00] VITALS: PULSE 75
[2018-06-24] MEDS: predniSONE 20 MG TAB PO SCH (08:07)
[2018-06-24] MEDS: CIPROFLOXACIN 200 MG/D5W IVPB 100 ML IVPB SCH (08:07)
[2018-06-24] MEDS ORDERED: CIPR500T4 PO (11:08)
[2018-06-24] MEDS ORDERED: METR500T PO (11:08)
[2018-06-24] MEDS ORDERED: MED4DP PO (11:08)
--- NOTE | 2018-06-24 11:10 | PDOCDIS ---
Discharge Instructions CONDITION [id number] Patient Condition: [id number] Stable FOLLOW UP/APPOINTMENTS Follow-up Plan Dami Leonard MD Specialty: Internal Medicine Office Address: [address] [place], [place] [id number] Office OTHER ORDERS: Other Orders: 1. Take medications as per prescription. 2. Follow a regular, preferably low carbohydrate diet. 3. Follow-up with your primary care physician in 2 weeks. If you do not have a primary care physician, please call Dr. Dami Leonard's office 4. Resume activities as tolerated. 5. Please go to the nearest emergency room if you have any persistent fevers, significant shortness of breath, abdominal pain, persistent nausea/vomiting, or any other symptoms. SHAVON RYAN NP Jun 24, 2018 11:10
[2018-06-24 11:13] VITALS: BP 125/72; PULSE 99; RESP 19
--- NOTE | 2018-06-24 11:17 | DS ---
Date/Time of Note Date/Time of Note DATE: 06/24/18 TIME: 11:14 Discharge Summary Admission/Discharge Info Admit Date/Time Jun 22, 2018 at 20:06 Discharge Date/Time Discharge Diagnosis 1. Status post sepsis with leukocytosis, tachycardia, lactic acidosis present on admission secondary to underlying acute tracheobronchitis and chronic diverticulitis. 2. Acute tracheobronchitis. 3. Colonic diverticulitis. 4. Asthma exacerbation. 5. ?Syncope. 6. Acute nonoliguric kidney injury. 7. Positive amphetamines in urine. 8. Prediabetes. Hemoglobin A1c 6.2. Patient Condition: Stable Procedures CT Abdomen & Pelvis IMPRESSION: 1. Scattered colonic diverticula with apparent minimal fat stranding about the distal descending colon, may reflect early/mild changes of diverticulitis in the appropriate clinical setting. No pericolonic abscess or free air. 2. Diffuse bladder wall thickening, slightly more than expected for its partially collapsed state. Correlate for potential cystitis. 3. Mildly enlarged prostate gland, consider correlation with PSA. Brain CT IMPRESSION: 1. No acute intracranial hemorrhage, transcortical infarction or mass effect. 2. Mild intracranial atherosclerosis and chronic small vessel ischemic changes. 3. Mild generalized cerebral volume loss. Carotid Doppler IMPRESSION: 1. No evidence for hemodynamically significant carotid artery stenosis. 2. Normal antegrade flow in the vertebral arteries bilaterally. 2D Echocardiogram Conclusions: Normal left ventricular systolic function. Normal left ventricular cavity size. Normal left ventricular wall thickness. Ejection fraction is visually estimated at 60 %. Tissue Doppler/Mitral Doppler indices are consistent with impaired relaxation (Stage I diastolic dysfunction). Normal right ventricular size. Normal right ventricular systolic function. The left atrium is normal in size. The right atrium is normal in size. No significant valvular stenosis or regurgitation seen. Normal pericardium with no significant pericardial effusion. Hx of Present Illness This is a 57-year-old male with past medical history of asthma who presented to the emergency room complaining of shortness of breath. Patient also complained of an episode of nonbloody emesis and subsequent fall with possible syncope. In the emergency room, the patient was noted to be septic with leukocytosis, tachycardia, and lactic acidosis with positive urinalysis and a CT scan suggesting mild colonic diverticulitis. Therefore, the patient was admitted to inpatient setting. Hospital Course Etiology of the patient's underlying sepsis was extensively evaluated. The patient's urine culture remained negative although the patient's urinalysis was positive. The patient's leukocytosis improved throughout the hospital course. The patient probably had underlying bilateral chronic diverticulitis and economic of acute tracheobronchitis that responded well to the treatment strategy. The patient did not have any evidence of any septic shock. The patient had evidence of underlying asthma exacerbation. The patient was maintained on inhaled bronchodilators along with tapering dose of steroids with improvement in the patient's symptoms. The patient's syncope/possible syncope was extensively evaluated. The patient's brain CT scan was negative. The patient's carotid Doppler study was negative and the patient's 2D echocardiogram was showing preserved left ventricle ejection fraction. Patient's urine drug screen was positive for amphetamines although the patient denied this and referred this to from using Qvar inhaler. Patient was verbalized an episode of vomiting prior to the reported syncope. The patient's syncopal event have been most probably vasovagal in origin. The patient also had underlying acute kidney injury upon ER visit. This could have most probably secondary to underlying sepsis. The patient had a kidney injury resolved with IV hydration. The patient was also incidentally noticed to be prediabetic with a hemoglobin A1c of 6.2. The patient is a random blood glu cose levels were within normal limits. The patient had a stable hospital course. The patient is stable to be discharged home. Discharge Instructions 1. Take medications as per prescription. 2. Follow a regular, preferably low carbohydrate diet. 3. Follow-up with your primary care physician in 2 weeks. If you do not have a primary care physician, please call Dr. Dami Leonard's office 4. Resume activities as tolerated. 5. Please go to the nearest emergency room if you have any persistent fevers, significant shortness of breath, abdominal pain, persistent nausea/vomiting, or any other symptoms. The patient verbalized understanding of his discharge instructions. The patient was seen in collaboration with Dr. Trevizo. Home Meds Active Scripts Methylprednisolone* (Medrol* DOSE PACK) 4 Mg/Dose-Pack Tab.ds.pk, 4 MG PO . DIRECTED, #1 PACKET Prov:SHAVON RYAN [employer] 06/24/18 Metronidazole* (Flagyl*) 500 Mg Tablet, 500 MG PO Q8, #21 TAB Prov:SHAVON RYAN [employer] 06/24/18 Ciprofloxacin Hcl* (Ciprofloxacin Hcl*) 500 Mg Tablet, 500 MG PO BID for 7 Days, #14 TAB Prov:SHAVON RYAN [employer] 06/24/18 Beclomethasone Dip* (Qvar 40*) 7.3 Gm Inha, 2 PUFF INH BID, #1 INHALER Prov:ENEIDA MERCADO [employer] 06/08/17 Albuterol Sulfate* (Proair HFA*) 8.5 Gm Hfa.aer.ad, 2 PUFF INH Q4H PRN for WHEEZING AND SOB, #1 INHALER Prov:ENEIDA MERCADO [employer] 06/08/17 Discontinued Scripts Rgfktzjnsfs-Y-Lihdctpgro Hb* (Guaifenesin* DM Syrup) 120 Ml Syrup, 10 ML PO Q4H PRN for COUGH, #120 ML Prov:ENEIDA MERCADO NP 06/08/17 Cetirizine Hcl* (Zyrtec*) 10 Mg Capsule, 10 MG PO DAILY, #30 TAB.CHEW Prov:ENEIDA MERCADO NP 06/08/17 Prednisone* (Prednisone*) 20 Mg Tab, 60 MG PO DAILY for 5 Days, TAB Prov:ENEIDA MERCADO NP 06/08/17 Albuterol Sulfate* (Ventolin HFA*) 18 Gm Hfa.aer.ad, 2 PUFF INHALATION Q4H, #1 INHALER Prov:KRISTIN,BENJAMIN 07/02/16 Prednisone* (Prednisone*) 20 Mg Tab, 40 MG PO DAILY for 4 Days, TAB Prov:KRISTIN,BENJAMIN 07/02/16 Prednisone* (Prednisone*) 20 Mg Tab, 60 MG PO DAILY for 15 Days, TAB 60 mg po daily for 4 days, then 40 mg dailt for 4 days. Prov:ANNAMARIESANTINO DO 06/05/15 Follow-up Plan Dami Leonard MD Specialty: Internal Medicine Office Address: [address] [place] [address] Office Primary Care Provider [facility] Time spent on discharge: > 30 minutes Pending Labs Laboratory Tests Test 06/24/18 07:15 White Blood Count 10.9 10^3/ul (4.8-10.8) Red Blood Count 4.72 10^6/ul (4.70-6.10) Hemoglobin 13.4 g/dl (14.0-18.0) Hematocrit 41.5 % (42.0-52.0) Mean Corpuscular Volume 87.9 fl (82.0-101.0) Mean Corpuscular Hemoglobin 28.4 pg (29.0-33.0) Mean Corpuscular Hemoglobin Concent 32.3 g/dl (32.0-37.0) Red Cell Distribution Width 13.2 % (11.5-14.5) Platelet Count 234 10^3/UL (140-415) Mean Platelet Volume 9.8 fl (7.4-10.4) Immature Granulocytes % 0.600 % (0.001-0.429) Neutrophils % 81.7 % (39.0-77.0) Lymphocytes % 11.8 % (15.0-51.0) Monocytes % 5.2 % (0.0-11.0) Eosinophils % 0.3 % (0.0-7.0) Basophils % 0.4 % (0.0-2.0) Nucleated Red Blood Cells % 0.0 /100WBC (0.0-0.0) Immature Granulocytes # 0.060 10^3/ul (0.0-0.031) Neutrophils # 8.9 10^3/ul (1.6-7.5) Lymphocytes # 1.3 10^3/ul (0.8-2.9) Monocytes # 0.6 10^3/ul (0.3-0.9) Eosinophils # 0.0 10^3/ul (0.0-0.5) Basophils # 0.0 10^3/ul (0.0-0.1) Nucleated Red Blood Cells # 0.0 10^3/ul (0.0-0.0) Sodium Level 141 mmol/L (135-144) Potassium Level 4.4 mmol/L (3.5-5.1) Chloride Level 102 mmol/L (97-110) Carbon Dioxide Level 30 mmol/L (21-31) Anion Gap 9 (5-13) Blood Urea Nitrogen 18 mg/dl (7-20) Creatinine 0.95 mg/dl (0.61-1.24) Est Glomerular Filtrat Rate mL/min > 60 mL/min (>60) Glucose Level 110 mg/dl (70-220) Calcium Level 8.9 mg/dl (8.4-10.2) Total Bilirubin 0.1 mg/dl (0.2-1.3) Direct Bilirubin 0.00 mg/dl (0.00-0.20) Indirect Bilirubin 0.1 mg/dl (0-1.1) Aspartate Amino Transf (AST/SGOT) 19 IU/L (15-46) Alanine Aminotransferase (ALT/SGPT) 26 IU/L (13-69) Alkaline Phosphatase 79 IU/L (42-121) Total Protein 6.3 g/dl (6.1-8.1) Albumin 3.5 g/dl (3.3-4.9) Globulin 2.80 g/dl (1.3-3.2) Albumin/Globulin Ratio 1.25 SHAVON RYAN NP Jun 24, 2018 11:17
[2018-06-24 12:00] VITALS: PULSE 104
== END 2018-06-24 15:00 | disposition home or self-care (01) | DRG 871 ==
LOC: E/R 15:47 → TEL 20:06
PROVIDERS: ADMIT Family Medicine; ATTEND Family Medicine
DX: A41.9 Sepsis, unspecified organism (principal); R65.21 Severe sepsis with septic shock; J45.901 Unspecified asthma with (acute) exacerbation; K57.32 Diverticulitis of large intestine without perforation or abscess without bleeding; N39.0 Urinary tract infection, site not specified; N17.9 Acute kidney failure, unspecified; E87.2 Acidosis; J20.9 Acute bronchitis, unspecified; F15.90 Other stimulant use, unspecified, uncomplicated; R55 Syncope and collapse; Z87.891 Personal history of nicotine dependence
CPT/HCPCS: 36415; 70450; 71045; 74176; 80053; 80061; 80307; 81001; 82962; 83036; 83605; 83690; 83735; 84443; 84484; 85025; 87040; 87086; 93005; 93306; 93880; 94640; 94644; 94664; 96361; 96374; 96375; A4310; J0744; J1200; J1956; J2780; J2930; J7030; J7512